=== PATIENT | male | born 1985 | race Caucasian/White ===

== ENCOUNTER 2018-08-11 19:41 | Emergency (ER) | payer MEDICAID ==
[~2018-08-11] VITALS: Ht 175.3 cm; Wt 115.6 kg
[2018-08-11 19:50] VITALS: BP 137/92
[2018-08-11] MEDS ORDERED: HYDROcodone/APAP 5/325 TABLET PO ONE (20:00)
[2018-08-11] MEDS ORDERED: HYDROcodone/APAP 5/325 TABLET ONE (20:06)
[2018-08-11] MEDS ORDERED: KETOROLAC 30 MG/1 ML ONE (20:06)
[2018-08-11] MEDS ORDERED: CLINDAMYCIN 300 MG CAPSULE ONE (20:08)
[2018-08-11] MEDS ORDERED: KETOROLAC 30 MG/1 ML IM ONE (20:30)
[2018-08-11] MEDS ORDERED: CLINDAMYCIN 300 MG CAPSULE PO ONE (20:30)
== END 2018-08-11 20:33 | disposition home or self-care (01) ==
LOC: ED 20:05
DX: K08.89 Other specified disorders of teeth and supporting structures (principal)
CPT/HCPCS: 96372; 99283; J1885